=== PATIENT | male | born 1995 | race American Indian/Alaskan Native ===

== ENCOUNTER 2018-07-01 12:41 | Emergency (ER) | payer SELFPAY ==
--- NOTE | 2018-07-01 13:34 | Emergency Department Report ---
ED Abdominal Pain HPI - General Chief Complaint: Abdominal Pain Stated Complaint: ABD PAIN/N/V Time Seen by Provider: 07/01/18 13:20 Source: patient, EMS Mode of arrival: Ambulatory Limitations: No Limitations - History of Present Illness Initial Comments: Mr. 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 He was recently evaluated on Tuesday yesterday [place] for 3 days of left upper quadrant abdominal pain nausea vomiting. He was given laxative medication which helped him have relief of constipation. He was also strongly encouraged to cease from eating meat. His symptoms began after eating hamburger and simental this week. His father tried to explain that meat is the cause of his symptoms. He's been frustrated since he's been meat free for the last 3 years. He currently does not have any pain. Denies any fever. After taking a laxative yesterday he now has diarrhea. 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 MD Complaint: abdominal pain -: Gradual, days(s) (3) Location: [facility] Radiation: none Migration to: no migration Severity: mild, moderate Quality: cramping Consistency: intermittent Improves With: bowel movement Worsens With: eating Context: possible food poisoning Associated Symptoms: nausea, vomiting - Related Data Allergies Allergy/AdvReac Type Severity Reaction Status Date / Time No Known Allergies Allergy Verified 07/01/18 12:49 ED Review of Systems ROS: Stated complaint: ABD PAIN/N/V Other details as noted in HPI Comment: All other systems reviewed and negative Constitutional: denies: fever, malaise Respiratory: denies: cough Cardiovascular: denies: chest pain ED Past Medical Hx - Past Medical History Previous Medical History?: No - Surgical History Past Surgical History?: Yes Hx Appendectomy: Yes - Social History Smoking Status: Current Every Day Smoker Substance Use Type: None ED Physical Exam - General Limitations: No Limitations General appearance: alert, in no apparent distress, other (smiling, pleasant, comfortable, well-appearing) - Head Head exam: Present: atraumatic, normocephalic - Eye Eye exam: Present: normal appearance - ENT ENT exam: Present: mucous membranes moist - Neck Neck exam: Present: normal inspection, full ROM. Absent: tenderness, meningismus - Respiratory Respiratory exam: Present: normal lung sounds bilaterally. Absent: respiratory distress, wheezes, rales, rhonchi - Cardiovascular Cardiovascular Exam: Present: regular rate, normal rhythm, normal heart sounds. Absent: systolic murmur, diastolic murmur, rubs, gallop - GI/Abdominal GI/Abdominal exam: Present: soft, normal bowel sounds. Absent: distended, tenderness, guarding, rebound - Rectal Rectal exam: Present: deferred - Extremities Exam Extremities exam: Present: normal inspection - Back Exam Back exam: Present: normal inspection - Neurological Exam Neurological exam: Present: alert, oriented X3 - Psychiatric Psychiatric exam: Present: normal affect, normal mood - Skin Skin exam: Present: warm, dry, intact, normal color. Absent: rash ED Course Vital Signs 07/01/18 12:47 Temperature 98.6 F Pulse Rate 85 Respiratory 16 Rate Blood Pressure 135/85 O2 Sat by Pulse 97 Oximetry ED Medical Decision Making - Medical Decision Making I suspect Mr. Fisher has irritable bowel syndrome with symptoms exacerbated by meat intake. Furthermore patient likely has cramping from laxative use. Differential diagnosis for left upper quadrant pain includes peptic ulcer disease, gastritis, constipation, renal colic, food poisoning. He appears well at this time. No signs of peritoneal irritation. I do not suspect acute severe intra-abdominal inflammatory process such as time. I recommended clear liquid diet today. I recommended meatless diet for next 2 days including salads and nuts. Critical care attestation.: If time is entered above; I have spent that time in minutes in the direct care of this critically ill patient, excluding procedure time. ED Disposition Clinical Impression: Food intolerance, Abdominal pain, Constipation Disposition: - TO HOME OR SELFCARE Is pt being admited?: No Does the pt Need Aspirin: No Condition: Stable Instructions: Clear Liquid Diet (ED), Irritable Bowel Syndrome (ED) Referrals: [facility] [Outside] - 3-5 Days Forms: Work/School Release Form(ED)
== END 2018-07-01 13:41 | disposition home or self-care (01) ==
LOC: ED 12:41
CPT/HCPCS: 99283